=== PATIENT | female | born 1950 | race Caucasian/White ===

== ENCOUNTER → 2019-08-28 13:37 | Outpatient (CLI) | payer MEDICARE, OTHER, SELFPAY | PROVIDERS: PCP Family Medicine; Referring Provider Physician Assistant Medical; Visit Provider Family Medicine | DX: S91.001A Unspecified open wound, right ankle, initial encounter (principal); L08.9 Local infection of the skin and subcutaneous tissue, unspecified; G20 Parkinson's disease | CPT/HCPCS: 11042; 87070; 87075; 87077; 87186; 87205; 99203 ==

== ENCOUNTER → 2019-09-04 13:08 | Outpatient (CLI) | payer MEDICARE, OTHER, SELFPAY | PROVIDERS: PCP Family Medicine; Visit Provider Family Medicine | DX: S91.001A Unspecified open wound, right ankle, initial encounter (principal); G20 Parkinson's disease; L08.9 Local infection of the skin and subcutaneous tissue, unspecified | CPT/HCPCS: 11042; 87070; 87075; 87077; 87205 ==

== ENCOUNTER → 2019-09-11 09:46 | Outpatient (CLI) | payer MEDICARE, OTHER, SELFPAY | PROVIDERS: PCP Family Medicine; Visit Provider Family Medicine | DX: S91.002A Unspecified open wound, left ankle, initial encounter (principal); L08.9 Local infection of the skin and subcutaneous tissue, unspecified; G20 Parkinson's disease; B95.7 Other staphylococcus as the cause of diseases classified elsewhere | CPT/HCPCS: 11042; 99214 ==

== ENCOUNTER → 2019-09-17 13:23 | Outpatient (CLI) | payer MEDICARE, OTHER, SELFPAY | PROVIDERS: PCP Family Medicine; Visit Provider Family Medicine | DX: L97.319 Non-pressure chronic ulcer of right ankle with unspecified severity (principal) | CPT/HCPCS: 29581 ==

== ENCOUNTER → 2019-09-19 13:02 | Outpatient (CLI) | payer MEDICARE, OTHER, SELFPAY | PROVIDERS: PCP Family Medicine; Visit Provider Family Medicine | DX: S91.002A Unspecified open wound, left ankle, initial encounter (principal); G20 Parkinson's disease; L08.9 Local infection of the skin and subcutaneous tissue, unspecified; B95.7 Other staphylococcus as the cause of diseases classified elsewhere | CPT/HCPCS: 11042 ==

== ENCOUNTER → 2019-09-25 14:17 | Outpatient (CLI) | payer MEDICARE, OTHER, SELFPAY | PROVIDERS: PCP Family Medicine; Visit Provider Family Medicine | DX: S91.002A Unspecified open wound, left ankle, initial encounter (principal); L89.893 Pressure ulcer of other site, stage 3; S91.105D Unspecified open wound of left lesser toe(s) without damage to nail, subsequent encounter; G20 Parkinson's disease; L08.9 Local infection of the skin and subcutaneous tissue, unspecified; B95.7 Other staphylococcus as the cause of diseases classified elsewhere; L97.319 Non-pressure chronic ulcer of right ankle with unspecified severity | CPT/HCPCS: 97597; 99214 ==

== ENCOUNTER → 2019-10-01 15:40 | Outpatient (CLI) | payer MEDICARE, OTHER, SELFPAY | PROVIDERS: PCP Family Medicine; Visit Provider Family Medicine | DX: S91.001A Unspecified open wound, right ankle, initial encounter (principal); L89.893 Pressure ulcer of other site, stage 3; G20 Parkinson's disease; S91.002D Unspecified open wound, left ankle, subsequent encounter | CPT/HCPCS: 97597 ==

== ENCOUNTER → 2019-10-08 13:21 | Outpatient (CLI) | payer MEDICARE, OTHER, SELFPAY | PROVIDERS: PCP Family Medicine; Visit Provider Family Medicine | DX: L89.893 Pressure ulcer of other site, stage 3 (principal); G20 Parkinson's disease | CPT/HCPCS: 99213 ==

== ENCOUNTER → 2019-10-22 13:56 | Outpatient (CLI) | payer MEDICARE, OTHER, SELFPAY | PROVIDERS: PCP Family Medicine; Visit Provider Family Medicine | DX: L89.893 Pressure ulcer of other site, stage 3 (principal); G20 Parkinson's disease | CPT/HCPCS: 99212 ==

== ENCOUNTER 2020-08-06 11:33 | Emergency (ER) | payer MEDICARE, OTHER, MEDICAID, SELFPAY ==
[2020-08-06 11:40] VITALS: BP 190/88; PULSE 87; O2SAT 98
[2020-08-06 11:42] VITALS: BP 186/90; PULSE 84; O2SAT 98
--- NOTE | 2020-08-06 11:56 | ED_ITS ---
HPI - Head Injury <Cristal Plunkett, LABOR SUPERVISOR-BC - Last Filed: 08/06/20 14:36> General Chief complaint: Head Injury Stated complaint: fell and hit head Time Seen by Provider: 08/06/20 11:46 Source: patient Mode of arrival: Ambulatory Limitations: no limitations History of Present Illness HPI Narrative: The patient is a 70-year-old female nonsmoker with history of Parkinson's who presents with her institutional cook for ground level fall and hitting her head. She fell approximately 9-930 this morning as a mechanical trip and fall and hit her forehead on the corner of a dresser. She complains of headache that is 5/10 since this happened. She does complain of some neck pain as well. She does not complain of any chest pain shortness of breath. She and her institutional cook states that she has multiple falls due to her Parkinson's, are adamant that this is a mechanical fall. She also has a laceration to her forehead on the right side, and she states that her tetanus is up-to-date within the past 5 years. Her primary care provider is Joel. Given that the patient had a ground level fall with suspected injury, modified trauma was activated upon patient arrival. She denies any chest pain, difficulty breathing, or hip pain. Related Data Home Medications Medication Instructions Recorded Confirmed oxybutynin chloride [Ditropan XL] 15 mg PO HS #0 10/25/11 omeprazole 20 mg PO QDAY@0600 #0 05/08/12 alprazolam [Xanax] Q DAY #0 11/14/16 oxycodone-acetaminophen [Percocet] PRN #0 01/16/17 venlafaxine [Effexor XR] QDAY #0 01/16/17 Previous Rx's Medication Instructions Recorded amantadine HCl 100 mg PO HS #180 rosales 09/12/16 trihexyphenidyl 0 PO SEE INSTRUCTIONS #275 tabs 09/13/16 carbidopa-levodopa [Sinemet CR] 0 PO SEE INSTRUCTIONS #300 tab 04/17/17 entacapone 0 PO SEE INSTRUCTIONS #50 tab 04/17/17 ropinirole [Requip] 1 mg PO Q DAY #90 tab 09/25/17 Allergies Allergy/AdvReac Type Severity Reaction Status Date / Time propoxyphene [PROPOXYPHENE] Allergy Unknown SYSTEMIC Verified 08/06/20 12:13 RASH Review of Systems <Cristal Plunkett [facility] - Last Filed: 08/06/20 14:36> Review of Systems Narrative: GENERAL: Denies chills, fatigue, malaise, fever, sweats. HEENT: Denies sinus pain, ear pain, sore throat, difficulty swallowing, dizziness. RESPIRATORY: Denies dyspnea, cough, wheezing, hemoptysis, sputum. CARDIOVASCULAR: Denies chest pain, palpitations, orthopnea, edema, GASTROINTESTINAL: Denies nausea, vomiting, abdominal pain, diarrhea, constipation, melena. : Denies dysuria, frequency, incontinence, hematuria, urinary retention. MUSCULOSKELETAL: See HPI SKIN: See HPI NEUROLOGIC: See HPI PSYCHIATRIC: No concerning psychosocial issues. 12 point review of systems is negative except for those stated above Patient History <Cristal Plunkett [facility] - Last Filed: 08/06/20 14:36> Social History Smoking Status: Former smoker Exam <Cristal Plunkett [facility] - Last Filed: 08/06/20 14:36> Narrative Exam Narrative: GENERAL: This is a well-nourished, well-developed patient, in mild distress. HEAD: Laceration as noted in skin exam. Tenderness to palpation around la ceration noted. EYES: Pupils equal round and reactive. Extraocular motions intact. No scleral icterus. No injection or drainage. ENT: Nose without bleeding, purulent drainage or septal hematoma. Throat without erythema, tonsillar hypertrophy or exudate. Uvula midline. Airway patent. NECK: Trachea midline. No JVD or lymphadenopathy. Supple, nontender, no meningeal signs. CARDIOVASCULAR: Regular rate and rhythm RESPIRATORY: Clear to auscultation. Breath sounds equal bilaterally. No wheezes, rales, or rhonchi. No cough. No increased respiratory effort. No accessory muscle use. GASTROINTESTINAL: Abdomen soft, non-tender, nondistended. No hepato- splenomegaly, or palpable masses. No guarding. EXTREMITIES: No clubbing, cyanosis, or edema. No joint tenderness, effusion, or edema noted. BACK: Slight pain to midline C-spine palpation. No pain to T or L-spine palpation. No step-offs or deformities throughout. NEURO: AOx3. SKIN: 0.25 cm laceration noted on right upper forehead. Linear, well approximated, no active bleeding. Dried blood around laceration. Initial Vital Signs Initial Vital Signs: Vital Signs Pulse Rate 87 08/06/20 11:40 Blood Pressure 190/88 H 08/06/20 11:40 Pulse Oximetry 98 08/06/20 11:40 <Cristal Booth MD - Last Filed: 08/06/20 17:44> Initial Vital Signs Initial Vital Signs: Vital Signs Pulse Rate 87 08/06/20 11:40 Blood Pressure 190/88 H 08/06/20 11:40 Pulse Oximetry 98 08/06/20 11:40 Procedures <BRIDGET Bryson - Last Filed: 08/06/20 14:36> Laceration Repair Laceration 1: Site: scalp Side (If applicable): right Size (cm): 0.25 Description: linear Depth: simple, single layer Pre-repair: wound explored, irrigated extensively and deep structures intact (Cleansed with Hibiclens) Skin layer closed with: jersey (One staple, tolerated well) Scores <BRIDGET Bryson - Last Filed: 08/06/20 14:36> GCS Dellroy coma scale eye opening: Spontaneous Dellroy coma scale verbal response: Orientated Dellroy coma scale motor response: Obey commands Corrie coma scale total score: 15 Nexus Score for C-Spine Focal Neurologic deficit present: No Midline spinal tenderness present: Yes Altered level of conciousness present: No Intoxication present: No Distracting Injury Present: No Nexus Criteria for C-spine: 1 Course <BRIDGET Bryson - Last Filed: 08/06/20 14:36> Orders Ordered: ED Orders 08/06/20 11:55 CT cervical spine wo con Stat CT head/brain wo con Stat 08/06/20 11:56 XR chest 1V Stat Vital Signs Vital signs: Vital Signs - 8 hr 08/06/20 11:40 08/06/20 11:42 08/06/20 12:00 Temperature 97.7 F Pulse Rate 87 84 81 Respiratory Rate 18 Blood Pressure 190/88 H 186/90 H 186/90 H Pulse Oximetry 98 98 100 08/06/20 12:30 08/06/20 13:00 08/06/20 14:17 Temperature Pulse Rate 79 82 88 Respiratory Rate 16 Blood Pressure 162/86 H Pulse Oximetry 100 100 98 <Cristal Booth MD - Last Filed: 08/06/20 17:44> Orders Ordered: ED Orders 08/06/20 11:55 CT cervical spine wo con Stat CT head/brain wo con Stat 08/06/20 11:56 XR chest 1V Stat Vital Signs Vital signs: Vital Signs - 8 hr 08/06/20 11:40 08/06/20 11:42 08/06/20 12:00 Temperature 97.7 F Pulse Rate 87 84 81 Respiratory Rate 18 Blood Pressure 190/88 H 186/90 H 186/90 H Pulse Oximetry 98 98 100 08/06/20 12:30 08/06/20 13:00 08/06/20 14:17 Temperature Pulse Rate 79 82 88 Respiratory Rate 16 Blood Pressure 162/86 H Pulse Oximetry 100 100 98 MDM - Head Injury <BRIDGET Bryson - Last Filed: 08/06/20 14:36> Imaging Data Chest x-ray: Radiologist's Impression: [address] [place] [id number] XRay Report Signed Patient: Yuliet Weiss [facility]#: [id number] : 8Acct:[id number] Age/Sex: 70 / FDate of Service: 08/06/20 Loc: ED Accession Number: [id number] Procedure: XR chest 1V Ordering Provider: Cristal Plunkett PROCEDURE: XR CHEST 1V INDICATIONS: fall TECHNIQUE: One view of the chest was acquired. COMPARISON: None. FINDINGS: Surgical changes and devices: None. Lungs and pleura: Lungs are clear. No pleural effusions or pneumothorax. Mediastinum: Mediastinal contours appear normal. Heart size is normal. Bones and chest wall: No suspicious bony lesions. Overlying soft tissues appear unremarkable. IMPRESSION: No acute cardiopulmonary abnormalities. Dictated by: Carlos Morris M.D. on 08/06/2020 at 12:35 Approved by: Carlos Morris M.D. on 08/06/2020 at 12:36 CT scan - head: Radiologist's Impression: [address] [place] [id number] Scan Report Signed Patient: Yuliet Weiss [facility]#: [id number] : 8Acct:[id number] Age/Sex: 70 / FDate of Service: 08/06/20 Loc: ED Accession Number: [id number] Procedure: CT head/brain wo con Ordering Provider: Cristal Plunkett PROCEDURE: CT HEAD/BRAIN WO CON INDICATIONS: hit head, headache TECHNIQUE: Noncontrast 4.5 mm thick angled axial sections acquired from the foramen magnum to the vertex, with coronal and sagittal reformats. For radiation dose reduction, the following was used: automated exposure control, adjustment of mA and/or kV according to patient size. COMPARISON: None. FINDINGS: Image quality: Excellent. CSF spaces: Basal cisterns are patent. No extra-axial fluid collections. The ventricles are symmetric in size and shape. Brain: No intracranial bleeds or masses. There is cerebral volume loss for age, with resultant ventricular and sulcal prominence. There are periventricular and deep white matter chronic small vessel ischemic changes. There is intracranial internal carotid artery atherosclerosis. Skull and face: Small soft tissue injury noted in the right frontoparietal scalp without underlying fracture. Calvarium and visualized facial bones appear intact, without suspicious lesions. Sinuses: Visualized sinuses and mastoids are clear. IMPRESSION: 1. Superficial soft tissue injury involving the right frontoparietal scalp without underlying calvarial fracture. 2. CT head without acute intracranial abnormality. 3. Age related senescent changes and sequela of chronic small vessel ischemic disease. Dictated by: Carlos Morris M.D. on 08/06/2020 at 12:27 Approved by: Carlos Morris M.D. on 08/06/2020 at 12:30 CT - cervical spine: Radiologist's Impression: [address] [place] [address] CT Scan Report Signed Patient: Yuliet Weiss [facility]#: [id number] : 8Acct:[id number] Age/Sex: 70 / FDate of Service: 08/06/20 Loc: ED Accession Number: [id number] Procedure: CT cervical spine wo con Ordering Provider: Cristal Plunkett PROCEDURE: CT CERVICAL SPINE WO CON INDICATIONS: c spine pain TECHNIQUE: Noncontrast 3 mm thick sections acquired from the skull base to the T4 level. Sagittal and coronal reformats were then constructed. For radiation dose reduction, the following was used: automated exposure control, adjustment of mA and/or kV according to patient size. COMPARISON: None. FINDINGS: Image quality: Excellent. Bones: No acute fractures or dislocations. No acute compression fractures of the vertebral bodies. Craniocervical junction is intact. C1-C2 relationship is preserved. Visualized superior ribs are intact. Moderate multilevel cervical spondylitic changes with loss of disc space and degenerative endplate changes. Findings are most pronounced from C4-5 through C7-T1. Findings are most severe at C5-6 and C6-7. Degenerative facet arthropathy of the cervical spine is visualized. Straightening of cervical lordosis which may be due to patient positioning and/or concurrent muscle spasms. Soft tissues: Prevertebral soft tissues are normal in thickness. No paravertebral hematomas. No apical pneumothoraces. IMPRESSION: 1. CT cervical spine without acute fracture or dislocation. 2. Moderate multilevel cervical spondylosis. 3. Mild straightening of normal cervical lordosis likely related to positioning and/or concurrent muscle spasms. Dictated by: Carlos Morris M.D. on 08/06/2020 at 12:30 Approved by: Carlos Morris M.D. on 08/06/2020 at 12:35 [facility] Narrative Medical decision making narrative: The patient is a 70-year-old female who presents after mechanical fall and hitting her head. Modified trauma activated on arrival given age and suspected injury. She did have pain to C-spine palpation to she was placed in a rigid collar, head CT and neck spine came back negative. Chest x-ray came back negative. Her laceration was closed as per procedural note, and patient states tetanus is up-to-date. The patient was able to ambulate at baseline per her caregiver and LIGHT EQUIPMENT OPERATOR syrup. I discussed at length rest, pushing fluids, [id number]-mwijpon medications as needed and able. The patient declined pain medication throughout her stay in the emergency department. Did discussed at length follow up for staple removal in approximately 10 days as well as monitor for signs and symptoms of infection, keeping it clean etcetera. Patient continues to deny pain to palpation of T and L-spine. Discussed at length coming back to the emergency department for any acute concerns such as neurological changes, discussed monitoring for saddle anesthesia, new incontinence of bowel or bladder. Patient and institutional cook state understanding of return precautions and follow-up care and have no questions or concerns upon discharge. Discharge Plan Departure Patient Disposition: Home Clinical Impression: Laceration, Fall from ground level Concussion without loss of consciousness Qualifiers: Encounter type: initial encounter Qualified Code(s): S06.0X0A - Concussion without loss of consciousness, initial encounter Discharge Date/Time: 08/06/20 14:18 Instructions: DI for Concussion, DI for Laceration Repair -- Jersey, How to Prevent Falls Activity Restrictions/Additional Instructions: Thank you for trusting us with your care today. As discussed, your imaging came back very well. Please follow up for staple removal about 10 days. Please call your primary care provider be sure to get in for emergency department follow-up. Please come back to emergency department for any acute concerns. Prescriptions: No Action oxybutynin chloride [Ditropan XL] 15 MG tablet extended release 24hr 15 mg PO HS Qty: 0 RF: 0 omeprazole 20 MG capsule,delayed release(DR/EC) 20 mg PO QDAY@0600 Qty: 0 RF: 0 amantadine HCl 100 MG capsule 100 mg PO HS Qty: 180 RF: 3 trihexyphenidyl 2 MG tablet 0 PO SEE INSTRUCTIONS Qty: 275 RF: 5 alprazolam [Xanax] 0.5 MG tablet Q DAY Qty: 0 RF: 0 venlafaxine [Effexor XR] 37.5 MG capsule,extended release 24hr QDAY Qty: 0 RF: 0 oxycodone-acetaminophen [Percocet] 5 MG/325 MG tablet PRN Qty: 0 RF: 0 carbidopa-levodopa [Sinemet CR] 25 MG/100 MG tablet extended release 0 PO SEE INSTRUCTIONS Qty: 300 RF: 3 entacapone 200 MG tablet 0 PO SEE INSTRUCTIONS Qty: 50 RF: 3 ropinirole [Requip] 1 MG tablet 1 mg PO Q DAY Qty: 90 RF: 3 Referrals: Chan Maldonado MD [Primary Care Provider] - <Cristal Booth MD - Last Filed: 08/06/20 17:44> [facility] ED Attending Sheronature Attestation: I was immediately available in the department for consultation throughout this patient's visit. I agree with documentation as above. Cristal Booth MD
[2020-08-06 12:00] VITALS: BP 186/90; PULSE 81; PULSE 82; RESP 18; TEMP 36.5; O2SAT 100
[2020-08-06 12:30] VITALS: PULSE 79; O2SAT 100
[2020-08-06 13:00] VITALS: PULSE 82; O2SAT 100
[2020-08-06 14:17] VITALS: BP 162/86; PULSE 88; RESP 16; O2SAT 98
== END 2020-08-06 14:18 | disposition home or self-care (01) ==
PROVIDERS: Emergency Provider Nurse Practitioner Family; PCP Family Medicine
DX: S06.0X0A Concussion without loss of consciousness, initial encounter (principal); S01.01XA Laceration without foreign body of scalp, initial encounter; W18.30XA Fall on same level, unspecified, initial encounter; G20 Parkinson's disease
CPT/HCPCS: 12001; 70450; 71045; 72125; 99284